=== PATIENT | female | born 1965 | race Asian ===

== ENCOUNTER 2016-11-24 08:51 | Outpatient (CLI) | payer OTHER | END 2016-11-24 08:56 | disposition short-term general hospital (02) | LOC: AMB 08:51 | DX: R07.89 Other chest pain (principal) | CPT/HCPCS: A0425; A0427 ==

== ENCOUNTER 2016-11-24 09:00 | Emergency (ER) | payer OTHER ==
[~2016-11-24] VITALS: Ht 162.6 cm; Wt 88.0 kg
[2016-11-24 08:56] VITALS: TEMP 98.1
[2016-11-24 09:13] LABS: PLATELET COUNT 246 K/uL (152-353)
[2016-11-24 09:53] LABS: POTASSIUM 4.3 mmol/L (3.6-5.2); SODIUM 137 mmol/L (136-145)
[2016-11-24 13:06] VITALS: BP 162/89
== END 2016-11-24 13:10 | disposition home or self-care (01) ==
LOC: ED 09:00
DX: R07.89 Other chest pain (principal); B34.9 Viral infection, unspecified; R00.1 Bradycardia, unspecified
CPT/HCPCS: 36415; 80053; 82550; 84484; 85027; 85610; 85730; 93005; 99283; Q9963

== ENCOUNTER 2017-03-11 06:16 | Emergency (ER) | payer OTHER ==
[~2017-03-11] VITALS: Ht 162.6 cm; Wt 89.8 kg
[2017-03-11 06:30] VITALS: TEMP 98.1
[2017-03-11 08:14] VITALS: BP 157/97
== END 2017-03-11 08:15 | disposition home or self-care (01) ==
LOC: ED 06:16
DX: S40.012A Contusion of left shoulder, initial encounter (principal); S40.011A Contusion of right shoulder, initial encounter; M25.551 Pain in right hip; I10 Essential (primary) hypertension; W01.0XXA Fall on same level from slipping, tripping and stumbling without subsequent striking against object, initial encounter; Y92.098 Other place in other non-institutional residence as the place of occurrence of the external cause
CPT/HCPCS: 99282

== ENCOUNTER 2017-04-30 11:25 | Outpatient (CLI) | payer OTHER | END 2017-04-30 11:29 | disposition short-term general hospital (02) | LOC: AMB 11:25 | DX: R07.89 Other chest pain (principal); I10 Essential (primary) hypertension | CPT/HCPCS: A0425; A0427 ==

== ENCOUNTER 2017-04-30 11:27 | Emergency (ER) | payer OTHER ==
[~2017-04-30] VITALS: Ht 162.6 cm; Wt 96.2 kg
[2017-04-30 11:44] VITALS: TEMP 98.5
[2017-04-30 14:35] VITALS: BP 153/92
== END 2017-04-30 14:50 | disposition home or self-care (01) ==
LOC: ED 11:27
DX: S79.911A Unspecified injury of right hip, initial encounter (principal); I10 Essential (primary) hypertension
CPT/HCPCS: 36415; 93005; 96374; 99283; J0360; J1170; J2060; J2405

== ENCOUNTER 2019-11-24 13:53 | Outpatient (CLI) | payer OTHER ==
[2019-11-24 14:48] LABS: PLATELET COUNT 240 K/uL (152-353)
[2019-11-24 15:34] LABS: POTASSIUM 3.4 mmol/L (3.6-5.2)
== END 2019-11-24 19:02 | disposition home or self-care (01) ==
LOC: LABW 13:53
PROVIDERS: Physician Assistant
DX: I10 Essential (primary) hypertension (principal); E78.5 Hyperlipidemia, unspecified; R53.83 Other fatigue
CPT/HCPCS: 36415; 80053; 80061; 83036; 84443; 85027

== ENCOUNTER 2019-12-30 05:47 | Emergency (ER) | payer OTHER ==
[~2019-12-30] VITALS: Ht 165.1 cm; Wt 94.3 kg
[2019-12-30 07:46] LABS: PLATELET COUNT 255 K/uL (152-353)
[2019-12-30 08:03] LABS: POTASSIUM 3.7 mmol/L (3.6-5.2)
[2019-12-30 08:25] VITALS: BP 169/99; TEMP 99.1
== END 2019-12-30 08:34 | disposition home or self-care (01) ==
LOC: ED 05:47
PROVIDERS: Family Medicine
DX: J30.81 Allergic rhinitis due to animal (cat) (dog) hair and dander (principal)
CPT/HCPCS: 36415; 80053; 81000; 85027; 87086; 87088; 87502; 87651; 99283

== ENCOUNTER 2020-05-11 16:25 | Emergency (ER) | payer OTHER ==
[~2020-05-11] VITALS: Ht 165.1 cm; Wt 88.5 kg
[2020-05-11 16:35] VITALS: TEMP 97.8
[2020-05-11 17:35] LABS: PLATELET COUNT 251 K/uL (152-353)
[2020-05-11 17:43] LABS: POTASSIUM 3.9 mmol/L (3.6-5.2)
[2020-05-11 18:52] VITALS: BP 138/85
== END 2020-05-11 18:52 | disposition home or self-care (01) ==
LOC: ED 16:25
PROVIDERS: Emergency Medicine Emergency Medical Services
DX: I10 Essential (primary) hypertension (principal); R51.9 Headache, unspecified
CPT/HCPCS: 36415; 80048; 85027; 96360; 96375; 99284; J0360; J1885

== ENCOUNTER 2020-10-29 17:46 | Emergency (ER) | payer OTHER ==
[~2020-10-29] VITALS: Ht 165.1 cm; Wt 88.5 kg
[2020-10-29 19:19] LABS: PLATELET COUNT 221 K/uL (152-353)
[2020-10-29 19:36] LABS: POTASSIUM 3.5 mmol/L (3.6-5.2)
[2020-10-29 22:05] VITALS: BP 135/76; TEMP 98.2
== END 2020-10-29 22:05 | disposition home or self-care (01) ==
LOC: ED 17:46
PROVIDERS: Family Medicine
DX: M54.2 Cervicalgia (principal); I10 Essential (primary) hypertension
CPT/HCPCS: 36415; 80053; 85027; 99283

== ENCOUNTER 2021-07-31 16:27 | Emergency (ER) | payer OTHER ==
[~2021-07-31] VITALS: Ht 162.6 cm; Wt 86.2 kg
[2021-07-31 16:40] VITALS: BP 171/103; TEMP 100.1
== END 2021-07-31 17:02 | disposition home or self-care (01) ==
LOC: ED 16:27
DX: Z53.21 Procedure and treatment not carried out due to patient leaving prior to being seen by health care provider (principal); I10 Essential (primary) hypertension; R51.9 Headache, unspecified
CPT/HCPCS: 99281

== ENCOUNTER 2021-08-28 01:36 | Emergency (ER) | payer OTHER | END 2021-08-28 01:40 | disposition home or self-care (01) | LOC: ED 01:36 | DX: Z53.21 Procedure and treatment not carried out due to patient leaving prior to being seen by health care provider (principal) | CPT/HCPCS: 99281 ==

== ENCOUNTER 2021-09-15 22:48 | Emergency (ER) | payer OTHER ==
[~2021-09-15] VITALS: Ht 162.6 cm; Wt 88.0 kg
[2021-09-15 23:29] LABS: PLATELET COUNT 262 K/uL (152-353)
[2021-09-16 00:02] LABS: POTASSIUM 3.2 mmol/L (3.6-5.2)
[2021-09-16 02:23] VITALS: BP 167/99; TEMP 97.9
== END 2021-09-16 02:23 | disposition short-term general hospital (02) ==
LOC: ED 22:48
PROVIDERS: Emergency Medicine Emergency Medical Services
DX: I21.4 Non-ST elevation (NSTEMI) myocardial infarction (principal); I10 Essential (primary) hypertension
CPT/HCPCS: 36415; 80053; 83735; 84484; 85027; 85610; 93005; 96360; 96361; 96372; 99284; J1650

== ENCOUNTER 2021-10-01 17:26 | Emergency (ER) | payer OTHER ==
[~2021-10-01] VITALS: Ht 162.6 cm; Wt 88.0 kg
[2021-10-01 18:36] LABS: PLATELET COUNT 218 K/uL (152-353)
[2021-10-01 18:48] LABS: POTASSIUM 3.7 mmol/L (3.6-5.2)
[2021-10-01 22:20] VITALS: BP 134/81; TEMP 98.1
== END 2021-10-01 22:20 | disposition short-term general hospital (02) ==
LOC: ED 17:26
PROVIDERS: Emergency Medicine
DX: I22.2 Subsequent non-ST elevation (NSTEMI) myocardial infarction (principal); I21.9 Acute myocardial infarction, unspecified; I10 Essential (primary) hypertension; Z11.52 Encounter for screening for COVID-19
CPT/HCPCS: 36415; 80053; 80307; 81000; 84484; 85027; 85610; 85730; 87635; 93005; 96365; 96366; 96375; 99284; J1644; J2270; J2405; J3490; U0003

== ENCOUNTER 2022-03-15 20:47 | Emergency (ER) | payer OTHER ==
[~2022-03-15] VITALS: Ht 162.6 cm; Wt 90.7 kg
[2022-03-15 20:57] VITALS: TEMP 98.1
[2022-03-15 22:55] VITALS: BP 188/100
== END 2022-03-15 22:59 | disposition home or self-care (01) ==
LOC: ED 20:47
DX: K02.9 Dental caries, unspecified (principal)
CPT/HCPCS: 96372; 99283; J1885

== ENCOUNTER 2022-05-14 09:28 | Emergency (ER) | payer OTHER ==
[~2022-05-14] VITALS: Ht 162.6 cm; Wt 99.8 kg
[2022-05-14 09:28] VITALS: TEMP 99.3
[2022-05-14 10:07] LABS: PLATELET COUNT 220 K/uL (152-353)
[2022-05-14 10:11] LABS: POTASSIUM 3.8 mmol/L (3.6-5.2)
[2022-05-14 10:19] LABS: PARTIAL THROMBOPLASTIN TIME 27.2 SECONDS (24.5-33.6)
[2022-05-14 13:36] VITALS: BP 135/81
== END 2022-05-14 13:36 | disposition short-term general hospital (02) ==
LOC: ED 09:28
PROVIDERS: Emergency Medicine
DX: I21.4 Non-ST elevation (NSTEMI) myocardial infarction (principal); I10 Essential (primary) hypertension; I25.2 Old myocardial infarction; I25.10 Atherosclerotic heart disease of native coronary artery without angina pectoris
CPT/HCPCS: 80053; 83690; 84484; 85027; 85379; 85610; 85730; 93005; 96365; 96366; 96375; 99285; J1644; J2270; J2405

== ENCOUNTER 2022-05-29 08:45 | Outpatient (CLI) | payer OTHER | END 2022-05-29 19:08 | disposition home or self-care (01) | LOC: MAMMO 08:45 | PROVIDERS: ATTEND Internal Medicine | DX: Z12.31 Encounter for screening mammogram for malignant neoplasm of breast (principal) ==

== ENCOUNTER 2022-08-10 14:41 | Emergency (ER) | payer OTHER ==
[~2022-08-10] VITALS: Ht 162.6 cm; Wt 101.6 kg
[2022-08-10 15:49] LABS: PLATELET COUNT 252 K/uL (152-353)
[2022-08-10 16:59] VITALS: TEMP 99.9
[2022-08-10 17:00] VITALS: BP 159/92
== END 2022-08-10 16:59 | disposition home or self-care (01) ==
LOC: ED 14:41
PROVIDERS: Emergency Medicine Emergency Medical Services
DX: J20.9 Acute bronchitis, unspecified (principal); B34.9 Viral infection, unspecified; I10 Essential (primary) hypertension; Z20.822 Contact with and (suspected) exposure to COVID-19
CPT/HCPCS: 36415; 80053; 80307; 81002; 81025; 83735; 85027; 87502; 87635; 93005; 96365; 96374; 96375; 99284; J3490; U0001

== ENCOUNTER 2023-01-07 09:51 | Emergency (ER) | payer OTHER ==
[~2023-01-07] VITALS: Ht 162.6 cm; Wt 101.2 kg
[2023-01-07 09:52] VITALS: TEMP 97.9
[2023-01-07 10:26] LABS: PLATELET COUNT 254 K/uL (152-353)
[2023-01-07 10:37] LABS: POTASSIUM 3.7 mmol/L (3.6-5.2)
[2023-01-07 10:41] LABS: PARTIAL THROMBOPLASTIN TIME 27.7 SECONDS (23.9-36.7)
[2023-01-07 11:57] VITALS: BP 72/33
== END 2023-01-07 12:00 | disposition short-term general hospital (02) ==
LOC: ED 09:51
PROVIDERS: Family Medicine
DX: I21.4 Non-ST elevation (NSTEMI) myocardial infarction (principal); R07.9 Chest pain, unspecified
CPT/HCPCS: 36415; 80053; 82550; 84484; 85027; 85610; 85730; 87635; 93005; 96361; 96365; 96375; 96376; 99285; J0360; J1644; J2270; J2405; J3490; U0003